=== PATIENT | male | born 1945 | race Caucasian/White ===

== ENCOUNTER → 2016-12-17 | Outpatient (CLI) | payer MEDICARE | END | disposition home or self-care (01) | LOC: PCVCIMAG 14:54 | PROVIDERS: ATTEND Internal Medicine Cardiovascular Disease | DX: I10 Essential (primary) hypertension (principal); I42.9 Cardiomyopathy, unspecified; I34.1 Nonrheumatic mitral (valve) prolapse; R53.83 Other fatigue; R68.89 Other general symptoms and signs; I34.0 Nonrheumatic mitral (valve) insufficiency; I51.9 Heart disease, unspecified; E78.5 Hyperlipidemia, unspecified; R06.02 Shortness of breath | CPT/HCPCS: 80061; 93005; 93306; G0463 ==

== ENCOUNTER → 2017-06-10 | Outpatient (CLI) | payer MEDICARE | END | disposition home or self-care (01) | LOC: PCVCCLINIC 11:52 | PROVIDERS: ATTEND Internal Medicine Cardiovascular Disease | DX: I34.1 Nonrheumatic mitral (valve) prolapse (principal); I34.0 Nonrheumatic mitral (valve) insufficiency; I10 Essential (primary) hypertension; E78.00 Pure hypercholesterolemia, unspecified; D46.9 Myelodysplastic syndrome, unspecified; I42.9 Cardiomyopathy, unspecified; Z79.82 Long term (current) use of aspirin; Z79.899 Other long term (current) drug therapy | CPT/HCPCS: 80061; 93005; G0463 ==

== ENCOUNTER → 2017-12-30 | Outpatient (CLI) | payer MEDICARE | END | disposition home or self-care (01) | LOC: PCVCCLINIC 08:51 | DX: I08.1 Rheumatic disorders of both mitral and tricuspid valves (principal); I10 Essential (primary) hypertension; I42.9 Cardiomyopathy, unspecified; I73.00 Raynaud's syndrome without gangrene; Z79.899 Other long term (current) drug therapy; Z79.82 Long term (current) use of aspirin | CPT/HCPCS: 93005; 93306; G0463 ==

== ENCOUNTER → 2018-09-29 | Outpatient (CLI) | payer MEDICARE | END | disposition home or self-care (01) | LOC: PCVCCLINIC 13:03 | PROVIDERS: ATTEND Internal Medicine Cardiovascular Disease | DX: I42.9 Cardiomyopathy, unspecified (principal); I34.1 Nonrheumatic mitral (valve) prolapse; I34.0 Nonrheumatic mitral (valve) insufficiency; Z79.82 Long term (current) use of aspirin; Z79.899 Other long term (current) drug therapy | CPT/HCPCS: 93005; G0463 ==

== ENCOUNTER → 2018-12-29 | Outpatient (CLI) | payer MEDICARE ==
--- NOTE | 2018-12-29 12:32 | PCVCIMAG ---
APPROVED REPORT Study performed: 12/29/2018 09:44:53 EXAM: Comprehensive 2D, Doppler, and color-flow Echocardiogram Patient Location: Echo lab Status: routine BSA: 1.90 HR: 90 bpmBP: 104/52 mmHg Rhythm: NSR Other Information Study Quality: Adequate Indications Mitral Valve Prolapse non ischemic cardiomyopathy, moderate mitral regurgitation 2D Dimensions IVSd: 10.49 (7-11mm) LVDd: 47.08 mm PWd: 8.75 (7-11mm) LVDs: 36.69 (25-40mm) Left Atrium: 38.29 (27-40mm) Aortic Root: 27.67 mm LV Single Plane 4CH: 63.07 % LV Single Plane 2CH: 65.70 % Biplane EF: 63.9 % Volumes Left Atrial Volume (Systole) Single Plane 4CH: 49.82 mLSingle Plane 2CH: 69.15 mL LA ESV Index: 37.00 mL/m2 Aortic Valve AoV Peak Pedro.: 1.24 m/s AO Peak Gr.: 6.16 mmHgLVOT Max P.69 mmHg LVOT Max V: 0.82 m/s Mitral Valve E/A Ratio: 0.8 MV Decel. Time: 190.75 ms MV E Max Pedro.: 0.62 m/s MV A Pedro.: 0.78 m/s MV PHT: 55.32 ms IVRT: 134.95 ms Pulmonary Valve PV Peak Pedro.: 0.82 m/sPV Peak Gr.: 2.67 mmHg Pulmonary Vein P Vein S: 0.25 m/sP Vein A: 0.34 m/s P Vein D: 0.33 m/sP Vein A Dur.: 138.4 msec P Vein S/D Ratio: 0.76 Tricuspid Valve TR Peak Pedro.: 2.31 m/s TR Peak Gr.: 21.27 mmHg TV Vmax: 0.44 m/s Left Ventricle The left ventricle is normal size. There is normal LV segmental wall motion. There is normal left ventricular wall thickness. Left ventricular systolic function is normal. The left ventricular ejection fraction is within the normal range. LVEF is 50-55%. Grade I - abnormal relaxation pattern. Right Ventricle The right ventricle is normal size. The right ventricular systolic function is normal. Atria Left atrium is mildly dilated. The right atrium size is normal. Aortic Valve The aortic valve is normal in structure. No aortic regurgitation is present. There is no aortic valvular stenosis. Mitral Valve Mild anterior mitral valve leaflet prolapse. Moderate mitral regurgitation, posterior jet. No evidence of mitral valve stenosis. Tricuspid Valve The tricuspid valve is normal in structure. Mild tricuspid regurgitation with PAP of 28 mmHg. Pulmonic Valve The pulmonary valve is normal in structure. There is no pulmonic valvular regurgitation. Great Vessels The aortic root is normal in size. IVC is normal in size and collapses >50% with inspiration. Pericardium There is no pericardial effusion. There is no pleural effusion. <Conclusion> The left ventricle is normal size. LVEF is 50-55%. Grade I - abnormal relaxation pattern. Left atrium is mildly dilated. The aortic valve is normal in structure. Mild anterior mitral valve leaflet prolapse. Moderate mitral regurgitation, posterior jet. Mild tricuspid regurgitation with PAP of 28 mmHg. The aortic root is normal in size. There is no pericardial effusion.
== END | disposition home or self-care (01) ==
LOC: PCVCIMAG 10:46
PROVIDERS: ATTEND Internal Medicine Cardiovascular Disease
DX: I08.1 Rheumatic disorders of both mitral and tricuspid valves (principal); I10 Essential (primary) hypertension; E78.00 Pure hypercholesterolemia, unspecified; I42.9 Cardiomyopathy, unspecified
CPT/HCPCS: 93005; 93306; G0463

== ENCOUNTER → 2019-09-07 | Outpatient (CLI) | payer MEDICARE | END | disposition home or self-care (01) | LOC: PCVCCLINIC 14:33 | PROVIDERS: ATTEND Internal Medicine Cardiovascular Disease | DX: I34.1 Nonrheumatic mitral (valve) prolapse (principal); I42.9 Cardiomyopathy, unspecified; I10 Essential (primary) hypertension; E78.00 Pure hypercholesterolemia, unspecified; Z72.89 Other problems related to lifestyle; Z79.82 Long term (current) use of aspirin; Z79.899 Other long term (current) drug therapy | CPT/HCPCS: 36415; 80061; 93005; G0463 ==